=== PATIENT | male | born 1935 | race Caucasian/White ===

== ENCOUNTER 2017-01-13 09:22 | Emergency (ER) | payer OTHER ==
[~2017-01-13] VITALS: Ht 162.6 cm; Wt 95.3 kg
[2017-01-13 10:04] LABS: EOSINOPHIL COUNT 0.1 K/uL (0-0.3); HEMATOCRIT 42.3 % (38.0-50.0); IMMATURE GRANULOCYTE COUNT 0.1 K/uL; INSTRUMENT ABS NEUTROPHIL CT 9.3 K/uL; MCH 29.1 PG (29.0-34.0); MCHC 32.4 G/DL (30.0-36.0); MCV 89.8 FL (86-99); MEAN PLAT.VOLUME 11.8 uM^3 (9.0-12.4); MONOCYTE (%) 5.2 % (3-12); MONOCYTE COUNT 0.6 K/uL (0-0.8); NEUTROPHIL (%) 83.5 % (45-76); NEUTROPHIL COUNT 9.3 K/uL (1.8-6.4); PLATELET COUNT 271 K/uL (156-360); RBC DIS.WIDTH-SD 51.5 % (39-53); RED BLOOD COUNT 4.71 M/uL (4.00-5.50); WHITE BLOOD COUNT 11.2 K/uL (4.1-10.2)
[2017-01-13 10:12] LABS: CHLORIDE 104 mEq/L (99-109); POTASSIUM 3.4 mEq/L (3.7-5.4)
[2017-01-13 10:13] LABS: SODIUM 140 mEq/L (136-147)
[2017-01-13 10:14] LABS: GLUCOSE 123 mg/dL (70-99)
[2017-01-13 10:16] LABS: ANION GAP 14 MEQ/L (2-14)
[2017-01-13 10:18] LABS: GFR ESTIMATE (CALCULATED) 52 mL/min/
[2017-01-13 10:19] LABS: UREA NITROGEN (BUN) 26 mg/dL (9-23)
[2017-01-13] MEDS ORDERED: AMLODIPINE BESY10 MG PO (11:21)
[2017-01-13] MEDS ORDERED: LUMIGAN 0.50 DROP/22 BOTH EYES (11:21)
[2017-01-13] MEDS ORDERED: LEVOTHYROXINE100 MCG PO (11:22)
[2017-01-13] MEDS ORDERED: METFORMIN HCL500 M1 PO (11:22)
[2017-01-13] MEDS ORDERED: METOPROLOL SUCC50 MG PO (11:22)
[2017-01-13] MEDS ORDERED: CLONIDINE HCL0.1 MG PO (11:22)
[2017-01-13] MEDS ORDERED: SIMVASTATIN10 MG PO (11:22)
[2017-01-13] MEDS ORDERED: LOSARTAN-HCTZ1 EAC2 PO (11:23)
[2017-01-13] MEDS ORDERED: KEFLEX500 MG PO (11:31)
[2017-01-13 12:04] VITALS: BP 131/84
== END 2017-01-13 12:09 | disposition home or self-care (01) ==
LOC: EME → EDBD 09:22 → EME 09:22
PROVIDERS: Emergency Medicine
DX: S01.21XA Laceration without foreign body of nose, initial encounter (principal); S01.81XA Laceration without foreign body of other part of head, initial encounter; S09.90XA Unspecified injury of head, initial encounter; S02.2XXA Fracture of nasal bones, initial encounter for closed fracture; S61.313A Laceration without foreign body of left middle finger with damage to nail, initial encounter; W18.39XA Other fall on same level, initial encounter; E11.9 Type 2 diabetes mellitus without complications; E78.5 Hyperlipidemia, unspecified; I10 Essential (primary) hypertension; E03.9 Hypothyroidism, unspecified; I45.10 Unspecified right bundle-branch block
CPT/HCPCS: 70450; 70486; 80048; 85025; 93005; 99281; 99284

== ENCOUNTER 2017-01-24 09:15 | Emergency (ER) | payer OTHER ==
[~2017-01-24] VITALS: Ht 162.6 cm; Wt 96.3 kg
[~2017-01-24 09:15] MED LIST: AMLODIPINE BESY10 MG PO; CLONIDINE HCL0.1 MG PO; KEFLEX500 MG PO; LEVOTHYROXINE100 MCG PO; LOSARTAN-HCTZ1 EAC2 PO; LUMIGAN 0.50 DROP/22 BOTH EYES; METFORMIN HCL500 M1 PO; METOPROLOL SUCC50 MG PO; SIMVASTATIN10 MG PO
[2017-01-24 10:18] VITALS: BP 123/82
== END 2017-01-24 10:19 | disposition home or self-care (01) ==
LOC: EME 09:15
DX: S01.21XD Laceration without foreign body of nose, subsequent encounter (principal); S01.81XD Laceration without foreign body of other part of head, subsequent encounter; I10 Essential (primary) hypertension
CPT/HCPCS: 99281; 99283